=== PATIENT | female | born 1980 | race Two or more races ===

== ENCOUNTER 2018-06-03 11:31 | Outpatient (CLI) | payer OTHER | END 2018-06-03 11:43 | disposition home or self-care (01) | LOC: RAD 11:31 | DX: M12.562 Traumatic arthropathy, left knee (principal) ==

== ENCOUNTER → 2018-06-03 12:46 | Outpatient (CLI) | payer OTHER | END | disposition home or self-care (01) | LOC: RAD 12:46 | DX: S82.092A Other fracture of left patella, initial encounter for closed fracture (principal) ==